=== PATIENT | female | born 1970 | race Caucasian/White ===

== ENCOUNTER → 2017-02-25 | Outpatient (CLI) | payer BC | END | disposition home or self-care (01) | LOC: RADMRIMAIN 18:10 | PROVIDERS: ATTEND Family Medicine | DX: Z53.9 Procedure and treatment not carried out, unspecified reason (principal) ==

== ENCOUNTER → 2017-04-29 | Outpatient (CLI) | payer BC ==
--- NOTE | 2017-04-29 21:05 | US ---
EXAMINATION TYPE: US thyroid st tissue head/neck DATE OF EXAM: 04/29/2017 COMPARISON: NONE CLINICAL HISTORY: E04.1 Thyroid nodule. Patient stated feels like food is getting caught in esophagus ; had open MRI in [place] 1.5 months earlier which showed left thyroid nodule; has had 60 lbs weight gain in 2 months. GLAND SIZE: Right Lobe: 5.3 x 1.7 x 1.8 cm Overall Parenchyma: homogenous Left Lobe: 5.1 x 2.0 x 2.1 cm Overall Parenchyma: homogeneous Isthmus Thickness: 0.3 cm NODULES RIGHT: # of nodules measured on right: 2 1. 0.4 X 0.4 x 0.2 cm hypoechoic mixed nodule at the lower medial pole with well-defined margins. This nodule is wider than tall and shows no intranodular vascularity. Prior size: no previous US 2. 0.3 X 0.2 x 0.2 cm hypoechoic mixed nodule at the mid lateral pole with well-defined margins. Th is nodule is wide as is tall and shows no intranodular vascularity. LEFT: # of nodules measured on left: 2 1. 0.4 X 0.3 x 0.4 cm hypoechoic mixed nodule at the upper pole with well-defined margins. This no dule is taller than wide and shows no intranodular vascularity. 2. 2.2 X 1.8 x 1.7 cm hypoechoic solid nodule at the mid pole with well-defined margins. This nodul e is taller than wide and shows intranodular vascularity. ISTHMUS: # of nodules measured in the isthmus: 0 Bilateral neck scanned, no evidence of lymphadenopathy. Thyroid gland is overall upper limits of normal in size and homogeneous in echotexture. There are few tiny nodules scattered throughout both thyroid lobes. There is a dominant 2.2 cm well-defined hetero geneous slightly hypoechoic solid nodule noted. IMPRESSION: Thyroid gland is upper limits of normal in size with a dominant 2.2 cm heterogeneous hypoechoic solid nodule confirmed. Imaging guided fine-needle aspiration of this dominant nodule can be performed to rule out malignancy if desired.
== END | disposition home or self-care (01) ==
LOC: RADUSWWP 16:38
PROVIDERS: ATTEND Internal Medicine Endocrinology, Diabetes & Metabolism
DX: E04.2 Nontoxic multinodular goiter (principal)
CPT/HCPCS: 76536

== ENCOUNTER 2017-05-19 12:07 | Day surgery (SDC) | payer BC ==
[2017-05-19 13:22] VITALS: RESP 16; TEMP 97
[2017-05-19 14:21] VITALS: BP 112/56; PULSE 76
--- NOTE | 2017-05-19 16:36 | US ---
ULTRASOUND GUIDED FNA THYROID BIOPSY: CLINICAL HISTORY: Left thyroid nodule FINDINGS: The procedure was explained to the patient. The risks, complications, benefits and alternatives were discussed and any questions were answered. Informed consent was obtained. Patient was placed supin e on the ultrasound table and prepped and draped in the usual sterile fashion. Utilizing a 25 gauge needle, five passes were made into the requested left thyroid nodule. Patient was stable throughout the procedure. Pathology is pending. All elements of maximal barrier technique were utilized. IMPRESSION: 1. Successful ultrasound guided FNA thyroid biopsy.
== END 2017-05-19 14:00 | disposition home or self-care (01) ==
LOC: RADPROMAIN 12:07
PROVIDERS: ATTEND Internal Medicine Endocrinology, Diabetes & Metabolism
DX: E04.1 Nontoxic single thyroid nodule (principal)
CPT/HCPCS: 10022; 76942; 88173; 88305

== ENCOUNTER → 2017-07-05 | Outpatient (CLI) | payer BC ==
--- NOTE | 2017-07-05 16:17 | CT ---
EXAMINATION TYPE: CT soft tissue neck w con DATE OF EXAM: 07/05/2017 HISTORY: Patient complains of dysphagia. Multiple thyroid nodules. presurgical. COMPARISON: Thyroid ultrasound dated 04/29/2017. CT DLP: 390.7 mGycm. Automated Exposure Control for Dose Reduction was Utilized. TECHNIQUE: CT scan of the neck is performed with IV Contrast, patient injected with 100 mL of Omnipa que 300, axial images are obtained, coronal and sagittal reformatted images are reviewed. FINDINGS: Airway: The oropharynx, nasopharynx, and subglottic pharynx are patent. Parotid/submandibular glands: Parotids and submandibular glands are symmetric without inflammatory ch enid. Carotid/Vascular Structures: No hemodynamically significant stenosis within either carotid system or vertebral artery. Osseous Structures: Osseous structures are intact and visualized paranasal sinuses are well aerated a s are the mastoid air cells and middle ear cavities. Other: The known left thyroid nodules are better delineated on ultrasound as they were noted to be is oechoic and are also isoattenuated to the background thyroid parenchyma other than a curvilinear area of 9 mm hypoattenuation within the enlarged left thyroid gland. Multiple nonenlarged anterior and po sterior cervical chain lymph nodes are seen. No adenopathy directly surrounding the thyroid gland is appreciated. No supraclavicular adenopathy is seen. No substernal extension of the thyroid gland is s een. IMPRESSION: The known complex left thyroid nodule is better assessed with ultrasound as it is isodens e on the current examination other than a curvilinear area of hypoattenuation measuring only 9 mm. No pathologically enlarged lymph nodes are seen of the neck. No substernal extension of the thyroid gla nd is noted.
== END | disposition home or self-care (01) ==
LOC: RADCTMAIN 15:34
PROVIDERS: ATTEND Surgery
DX: E04.2 Nontoxic multinodular goiter (principal)
CPT/HCPCS: 70491; Q9967

== ENCOUNTER 2017-08-03 07:55 | Observation (INO) | payer BC ==
[2017-07-30 10:46] VITALS: BMI 36.9
[~2017-08-03 07:55] MED LIST: HEPARIN SODIUM,PORCINE 5,000 UNIT/ML 1 ML VIAL SQ ONE; LACTATED RINGERS 1,000 ML IV ONE; ONDANSETRON 4 MG/2 ML VIAL IVP PRN; Pre Op ABX Message 1 EACH MISC MISCELLANE ONE; fentaNYL (PF) 50 MCG/ML 2 ML AMP IV PRN
[2017-08-03] MEDS ORDERED: LACTATED RINGERS 1,000 ML IV ONE ×3 (08:17→12:45)
[2017-08-03] MEDS ORDERED: LIDOCAINE 1% 20 ML VIAL (10MG/ML) FOR IV START INTRADERMA ONE (08:17)
[2017-08-03] MEDS ORDERED: SCOPOLAMINE 1.5MG/72HR PATCH TRANSDERM ONE (08:22)
[2017-08-03] MEDS ORDERED: DEXAMETHASONE SOD PHOS (MDV) 100 MG/10 ML VIAL IVP ONE (08:26)
[2017-08-03] MEDS ORDERED: HEPARIN SODIUM,PORCINE 5,000 UNIT/ML 1 ML VIAL SQ ONE (09:06)
[2017-08-03] MEDS ORDERED: SUCCINYLCHOLINE CHLORIDE 100 MG/5 ML SYR IV ONE (09:06)
[2017-08-03] MEDS ORDERED: LIDOCAINE 1% INJ 10MG/ML (20 ML MDV) ONE (09:06)
[2017-08-03] MEDS ORDERED: HYDROmorphone (PF) 1 MG/ML ONE (09:06)
[2017-08-03] MEDS ORDERED: fentaNYL (PF) 50 MCG/ML 2 ML AMP ONE (09:06)
[2017-08-03] MEDS ORDERED: PHENYLEPHRINE-0.9% NACL SYG 1 MG/10 ML SYRINGE ONE (09:06)
[2017-08-03] MEDS ORDERED: MIDAZOLAM 2 MG/2 ML VIAL ONE (09:06)
[2017-08-03] MEDS ORDERED: PROPOFOL 10 MG/ML 20 ML VIAL IV ONE (09:06)
[2017-08-03] MEDS ORDERED: SODIUM CHLORIDE 0.9% 50 ML with CLINDAMYCIN 600 MG IV ONE ×2 (09:46)
[2017-08-03] MEDS ORDERED: THROMBIN (BOVINE) 5,000 UNIT VIAL TOPICAL ONE (12:26)
[2017-08-03] MEDS ORDERED: GELATIN SPONGE,ABSORB (LARGE) 1 EACH SPONGE TOPICAL ONE (12:26)
[2017-08-03] MEDS ORDERED: HYDROcodone/APAP 5-325MG 1 EACH TAB PO PRN (12:58)
[2017-08-03] MEDS ORDERED: ONDANSETRON 4 MG/2 ML VIAL IVP PRN (12:58)
[2017-08-03] MEDS ORDERED: NALOXONE 0.4 MG/ML 1 ML VIAL IV PRN (12:58)
--- NOTE | 2017-08-03 12:58 | P.OP ---
Date of Procedure: 08/03/17 Preoperative Diagnosis: Nodule in the left lobe of the thyroid with compressive symptoms Description of Procedure: The patient is a 46-year-old white female was noted to have a nodule in the left lobe of the thyroid. FNA was done which revealed atypical cells and cytopathology studies were indeterminant. Additionally the patient complains of compressive symptoms. Patient was taken to the operating room and following induction of anesthesia the neck was prepped and draped in a sterile fashion. Prior to this a [facility] nerve stimulator was placed. The patient was placed in beachchair position. The neck was prepped and draped in a sterile fashion A collar incision was made. This was carried through skin and subcutaneous tissue and platysma. Superior and inferior skin flaps were developed. Strap muscles were in the midline. The left lobe of the thyroid was approached initially. The lobe was rotated medially. Superior thyroid vessels were identified and divided. The inferior thyroid vessels were identified and divided as well. The middle thyroid vein was identified and ligated and divided. The lobe was rotated medially being careful to identify and preserve the recurrent layrmgeal nearve, and spuerior and inferior parathyroid glands. The recurrent laryngeal nerve was identified and preserved as well. This was documented visually as well as with using the nerve stimulator. Following this the right side was approached. The superior and inferior thyroid vessels were identified these were ligated and divided. Likewise the middle thyroid vein was identified and ligated and divided. The recurrent laryngeal nerve was identified. The parathyroid superiorly and inferiorly identified and preserved. No adenopathy of concern was palpated in either side of the neck. After being assured that hemostasis was attained Gelfoam and thrombin was placed at the area of the ligament of Mcdonald. The neck was irrigated and no evidence of bleeding was identified. A Oscar drain was placed. Strap muscles were closed in the midline. This was followed by closure of the platysma with 3-0 Vicryl suture. The skin was closed using 4-0 Monocryl. The drain was secured using a nylon suture. The patient tolerated the procedure in stable condition. All instrument and sponge counts were correct at the end of the case.
[2017-08-03] MEDS ORDERED: HYDROmorphone 1 MG/ML 1 ML SYRINGE IVP ONE ×3 (13:31→14:20)
[2017-08-03] MEDS ORDERED: METOPROLOL TARTRATE 5 MG/5 ML VIAL IVP ONE ×2 (13:55→14:04)
[2017-08-03] MEDS: DEXTROSE 5%-0.45% NACL 1,000 ML IV SCH (16:05)
[2017-08-03] MEDS: HYDROmorphone 1 MG/ML 1 ML SYRINGE IV PRN ×2 (17:41→20:04)
[2017-08-03] MEDS: CALCIUM CARB-VIT D 500MG-200UN 1 EACH TAB PO SCH (18:28)
[2017-08-03] MEDS: HEPARIN SODIUM,PORCINE 5,000 UNIT/ML 1 ML VIAL SQ SCH (20:04)
[2017-08-03] MEDS: BENZOCAINE/MENTHOL LOZENG 1 EACH LOZENGE MUCOUS MEM PRN (20:04)
--- NOTE | 2017-08-03 20:34 | CONS ---
CONSULTATION DATE OF CONSULTATION: 08/03/17 REASON FOR CONSULTATION: Medical management requested by Dr. Schroeder. CONSULTATION: This is a pleasant 46-year-old patient of Dr. Willams. The patient is found to have a left thyroid nodule within compression symptoms and some atypical cells was found. Patient did undergo total thyroidectomy today. The patient has dressing over the operative site. The patient is somewhat tired and lethargic post procedure, but able to give some history. Patient has pain at the operative site. The patient also got caught problem in cervical spine from C4-C7 and due for surgery in the near future by Dr. Perez. The patient is followed by ceo and president, Dr. Luisa Kirkpatrick and she has tried some clear liquids right now. Does feel weak and tired. REVIEW OF SYSTEMS: Constitutional tired. HEENT none. Respiratory none. Cardiovascular none. Gastrointestinal none. Genitourinary none. Musculoskeletal none. Dermatologic, hematologic and lymphatic none. Psychiatry none. Neurological none. Musculoskeletal pain in the neck. PAST MEDICAL HISTORY: Thyroid nodule, pituitary tumor with gamma knife in 1995, stroke related to control, no physical residual defect, tiredness. PAST SURGICAL HISTORY: Orthopedic surgery, tubal ligation, uterine ablation, pituitary tumor removed, multiple surgeries on the wrist, left arm plate and pins, laparoscopic surgery for ruptured ovarian tube. SOCIAL HISTORY: Does not smoke. Alcohol rarely. Patient works with [employer] Services at [employer]. . FAMILY HISTORY: Thyroid disorder, ovarian cancer. HOME MEDICATIONS: Multivitamin. ALLERGIES: TO AMOXICILLIN, TYLENOL 3. EXAMINATION: Afebrile, pulse 81, respiratory 20, blood pressure 142/79, pulse ox 95% on room air. General appearance well built, BMI 36.9, lying in bed, tired appearing but arousable. Eyes pupils equal, conjunctivae normal. HEENT: Oral cavity normal. Neck dressing in place. JVD unable to assess. Tender. Respiratory effort lungs fair entry. Cardiovascular first and second sounds normal. No edema. ABDOMEN: Soft, nontender. Liver and spleen not palpable. Lymphatics: No lymph nodes palpable in the neck and axillae. Psychiatry: Patient lethargic but able to answer simple questions. Neurological pupils equal, no facial asymmetry. Moving all 4 limbs. INVESTIGATIONS: Calcium 9.4 and 8.9. ASSESSMENT: 1. Total thyroidectomy for left thyroid nodule with atypical cells with some compression symptoms. 2. Possibly C4, C7 osteo spondylosis due for surgery down the road. 3. Obesity BMI 36.9. PLAN: Care was discussed with the patient. Diet will be advanced as per Dr. Brandy Schroeder. The patient's and daughter at the bedside with no further questions. Pain control is in place. Dr. Luisa Kirkpatrick is following patient's calcium. The patient should see a dietitian as an outpatient for weight loss measures. Thank you Dr. Schroeder. Copy to Dr. Willams. KEMIL / GABI: [id number] /
[2017-08-04] MEDS ORDERED: BENZOCAINE/MENTHOL LOZENG 1 EACH LOZENGE MUCOUS MEM ONE (03:30)
[2017-08-04] MEDS: HYDROmorphone 1 MG/ML 1 ML SYRINGE IV PRN (06:19)
[2017-08-04] MEDS ORDERED: PANTOPRAZOLE 40 MG TABLET PO SCH (07:30)
[2017-08-04 08:01] LABS: Magnesium 1.6 mg/dL (1.6-2.3); Phosphorus 3.8 mg/dL (2.5-4.5)
[2017-08-04 08:44] VITALS: BP 108/69; PULSE 68; RESP 20; TEMP 97.6
[2017-08-04] MEDS: BENZOCAINE/MENTHOL LOZENG 1 EACH LOZENGE MUCOUS MEM PRN (08:52)
[2017-08-04] MEDS: HEPARIN SODIUM,PORCINE 5,000 UNIT/ML 1 ML VIAL SQ SCH (08:53)
[2017-08-04] MEDS: CALCIUM CARB-VIT D 500MG-200UN 1 EACH TAB PO SCH (08:53)
[2017-08-04] MEDS: DEXTROSE 5%-0.45% NACL 1,000 ML IV SCH ×2 (08:54→08:59)
--- NOTE | 2017-08-04 09:28 | P.DS ---
Providers Date of admission: 08/03/17 21:05 Expected date of discharge: 08/04/17 Attending physician: Claudia Schroeder Consults: 08/03/17 13:02 Consult Physician Routine Consulting Provider: Luisa Kirkpatrick Consult Reason/Comments: total thyroidectomy Do you want consulting provider notified?: Yes Consult Physician Routine Consulting Provider: Tonny North Consult Reason/Comments: medical managment Do you want consulting provider notified?: Yes Primary care physician: Amaury [facility] Course: 46-year-old female who was noted to have a nodule in the left lobe of the thyroid. FNA was done it showed atypical cells and cytopathology studies were indeterminant. Additionally the patient complains of compressive symptoms. Patient elected to undergo on the 03 of August a left lobe thyroidectomy. Postop calcium 9.5. Magnesium 1.6 replacement was given. The following morning the [place] drain was removed from surgical site there were no acute findings voice was not hoarse no numbness to the face patient was felt to be appropriate to be discharged Impression discharge diagnosis Nodule left lobe of the thyroid with compressive symptoms FNA was done which revealed atypical cells and cytopathology studies were indeterminant. Postop August 03 left lobe thyroidectomy Hypo-magnesium corrected The above impression and plan of care have been discussed and directed by signing physician. Heidy Yuan nurse practitioner acting as scribe for signing physician. Plan - Discharge Summary Discharge Rx Participant: Yes New Discharge Prescriptions: New Ibuprofen [Motrin] 0 mg PO Q8H PRN #15 tab PRN Reason: Mild Breakthrough Pain Calcium Carb-Vit D 500Mg-200Un [Oscal 500+D] 2 each PO BID-W/MEALS #120 tab Continue Multivitamins, Thera [Multivitamin (formulary)] 1 tab PO DAILY Discharge Medication List Multivitamins, Thera [Multivitamin (formulary)] 1 tab PO DAILY 07/30/17 [History ] Calcium Carb-Vit D 500Mg-200Un [Oscal 500+D] 2 each PO BID-W/MEALS #120 tab [Rx] Ibuprofen [Motrin] 0 mg PO Q8H PRN #15 tab 08/04/17 [Rx] Follow up Appointment(s)/Referral(s): Luisa Kirkpatrick MD [STAFF PHYSICIAN] - 1 Week Claudia Schroeder MD [STAFF PHYSICIAN] - 1 Week Patient Instructions/Handouts: *Surgery [facility] - Scopalamine Patch Instructions Activity/Diet/Wound Care/Special Instructions: No lifting over 4 pounds until seen in follow-up visit Keep surgical dressing dry Discharge Disposition: HOME SELF-CARE
[2017-08-04] MEDS ORDERED: IBUPROFEN 800 MG TAB PO PRN (09:50)
[2017-08-04] MEDS ORDERED: SODIUM CHLORIDE 0.9% 500 ML IV ONE (09:51)
[2017-08-04] MEDS: MAGNESIUM OXIDE 400 MG TAB PO STA ×2 (10:08→11:02)
[2017-08-04] MEDS: MAGNESIUM SULFATE-D5W PMX 1 GM in DEXTROSE/WATER 1 100ML.BAG IVPB SCH ×2 (11:02→12:26)
--- NOTE | 2017-08-04 14:17 | P.PN ---
Progress Note - Text Progress Note Date: 08/04/17 DATE OF SERVICE: 08/04/2017 PRESENTING COMPLAINT: Status post total thyroidectomy HISTORY OF PRESENT ILLNESS: 46-year-old female found to have a left thyroid nodule within compression symptoms and some atypical cells were found. Status post total thyroidectomy. INTERVAL HISTORY: 08/04/2017: Patient seen in follow-up today, standing up attempting to get dressed, surgical team has cleared the patient for discharge. States she has some difficulty swallowing but is able to swallow. No shortness of breath, or difficulty breathing, states she feels nauseated, received IV push Dilaudid short time ago. Anterior neck dressing clean dry and intact no drainage noted. REVIEW OF SYSTEMS: Done for constitutional ,cardiovascular, GI, pulmonary with relevant findings as above. CURRENT MEDICATIONS Cepacol lozenges, Os-Yonny plus D, Motrin 800 mg by mouth 3 times a day when necessary, Protonix 40 mg by mouth before meals breakfast daily. PHYSICAL EXAM VITAL SIGNS: Temperature 97.6, pulse 68, respirations 20 blood pressure 108/69, oxygen saturation 95% on room air. GENERAL APPEARANCE: Standing at the bedside getting dressed not in distress. EYES: Pupils equal. Conjunctiva normal. NECK: Anterior midline neck dressing in place, no drainage noted mild swelling at surgical site. JVD not raised. Mass not palpable. RESPIRATORY: Respiratory effort normal. Lungs clear to auscultation. CARDIOVASCULAR: First and second sounds normal. No edema. ABDOMEN: Soft. Liver and spleen not palpable. No tenderness. No mass palpable. PSYCHIATRY: Alert and oriented x3. Mood and affect normal. INVESTIGATIONS: Calcium 9.5, phosphorus 3.8, magnesium 1.6. ASSESSMENT: -Total thyroidectomy for left thyroid nodule with atypical cells with some compression symptoms. -Possibly C4, C7 osteosis spondylosis due for surgery at a later date. -Obesity body mass index 36.9. PLAN: Surgery has cleared the patient for discharge, however patient does feel some nausea, likely due to IV pain medications. Patient to be discharged once nausea dissipates. Dr. Kirkpatrick continues to follow patient's calcium. Patient should see a dietitian as an outpatient for weight loss measures. HAND [employer]ATWORK FINISHER statement: Patient was seen and examined by nurse practitioner Margot Wyatt and all elements of the case discussed with attending Dr. North
--- NOTE | 2017-08-04 23:15 | PN ---
PROGRESS NOTE DATE OF SERVICE: 08/04/2017 ATTENDING NOTE: Patient was seen and examined by me. I discussed with my nurse practitioner, Ms. Wyatt. The patient is feeling a bit better, had some nausea earlier this morning. It is felt to be from Dilaudid. EXAM: LUNGS: Clear. CARDIOVASCULAR: First and second sounds normal. Otherwise, patient is definitely far more perky. Calcium was noted. Magnesium was replaced, status post total thyroidectomy. Magnesium on the low side. The patient is due for a cervical spine surgery by Dr. Perez in a few days. Care was discussed with the patient. Thank you, Dr. Brandy Schroeder. MMBALAL / IJN: [id number] /
== END 2017-08-04 15:05 | disposition home or self-care (01) ==
LOC: OR 07:55 → 6PED 12:50 → OR 21:05
PROVIDERS: ADMIT Surgery; ATTEND Surgery
DX: E04.1 Nontoxic single thyroid nodule (principal); E83.42 Hypomagnesemia; E66.9 Obesity, unspecified; E55.9 Vitamin D deficiency, unspecified; F32.9 Major depressive disorder, single episode, unspecified; M50.30 Other cervical disc degeneration, unspecified cervical region; Z86.73 Personal history of transient ischemic attack (TIA), and cerebral infarction without residual deficits; Z83.49 Family history of other endocrine, nutritional and metabolic diseases; Z88.5 Allergy status to narcotic agent; Z88.0 Allergy status to penicillin; Z68.36 Body mass index [BMI] 36.0-36.9, adult; Z87.891 Personal history of nicotine dependence
CPT/HCPCS: 81025; 82310 ×2; 83735; 84100; 88307; 60240; G0378 ×2; J2250; J1644 ×2; J2405; J2001; J3010; J1170 ×2; J3475; J1100; J2370; J0330; J2704

== ENCOUNTER → 2019-02-14 | Outpatient (CLI) | payer BC ==
--- NOTE | 2019-02-14 13:54 | CT ---
EXAMINATION TYPE: CT sinus wo con DATE OF EXAM: 02/14/2019 COMPARISON: NONE HISTORY: Acute sinusitis unspecified per order. Nose bleeding with headaches, facial pain, dizziness and vision changes for [address] DLP: 544.7 mGycm. Automated Exposure Control for Dose Reduction was Utilized. TECHNIQUE: CT scan of the sinuses is performed without contrast, axial images are obtained, coronal r eformatted images are also reviewed. FINDINGS: Mild mucosal thickening involving inferior aspect left maxillary sinus is present. Remainde r paranasal sinuses are clear without suspicious opacification or air-fluid levels. The ostiomeatal complex is patent bilaterally on the coronal images. Visualized portion of mastoid air cells show no abnormal opacification. The globes are intact bilate rally. Visualized portion of brain parenchyma is unremarkable. IMPRESSION: Mild chronic left maxillary sinus disease. No acute sinusitis.
== END | disposition home or self-care (01) ==
LOC: RADCTMAIN 13:27
PROVIDERS: ATTEND Family Medicine
DX: J01.90 Acute sinusitis, unspecified (principal); J32.0 Chronic maxillary sinusitis
CPT/HCPCS: 70486

== ENCOUNTER 2019-06-05 17:45 | Emergency (ER) | payer OTHER, BC ==
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
[2019-06-05] MEDS ORDERED: KETOROLAC 60 MG/2 ML VIAL IM STA (20:09)
[2019-06-05 20:30] VITALS: BP 138/90; PULSE 77; RESP 18; TEMP 99.3
[2019-06-05] MEDS ORDERED: DIAZEPAM 5 MG/ML 2 ML INJ IM ONE (20:34)
== END 2019-06-05 21:00 | disposition home or self-care (01) ==
LOC: EC 17:45
DX: S16.1XXA Strain of muscle, fascia and tendon at neck level, initial encounter (principal); R51 Headache; E07.9 Disorder of thyroid, unspecified; Z87.891 Personal history of nicotine dependence; Z86.73 Personal history of transient ischemic attack (TIA), and cerebral infarction without residual deficits; Z79.899 Other long term (current) drug therapy; Z88.0 Allergy status to penicillin; Z88.6 Allergy status to analgesic agent; Z88.5 Allergy status to narcotic agent; V89.2XXA Person injured in unspecified motor-vehicle accident, traffic, initial encounter; Y92.410 Unspecified street and highway as the place of occurrence of the external cause
CPT/HCPCS: 72125; 70450; 99284; 96372 ×2; J3360; J1885

== ENCOUNTER 2020-07-09 17:01 | Emergency (ER) | payer BC, OTHER ==
[2020-07-09 17:16] VITALS: RESP 16
[2020-07-09] MEDS ORDERED: KETOROLAC 15 MG/ML 1 ML VIAL IVP STA (17:20)
--- NOTE | 2020-07-09 17:21 | ED ---
General Adult HPI - General Chief complaint: Extremity Injury, Lower Stated complaint: fall/foot pain Time Seen by Provider: 07/09/20 17:03 Source: patient, EMS, RN notes reviewed Mode of arrival: EMS Limitations: physical limitation - History of Present Illness Initial comments: 49-year-old female presents to the emergency department for a chief complaint of foot and ankle pain. Patient was dusting when she fell off of a 2 foot high stool darkly onto her right heel. States her heel and ankle are painful. Patient states she is not able to bear weight at this time. Patient did not hit her head. She does not take blood thinners.Patient has no other complaints at this time including shortness of breath, chest pain, abdominal pain, nausea or vomiting, headache, or visual changes. - Related Data Home Medications Medication Instructions Recorded Confirmed Thyroid,Pork [[place] Thyroid] 120 mg PO DAILY 06/05/19 06/05/19 Vortioxetine Hydrobromide 5 mg PO DAILY@1730 06/05/19 06/05/19 [Trintellix] Previous Rx's Medication Instructions Recorded Cyclobenzaprine [Flexeril] 10 mg PO TID #20 tab 06/05/19 Ibuprofen [Motrin] 600 mg PO Q6HR PRN #20 tab 06/05/19 Allergies Allergy/AdvReac Type Severity Reaction Status Date / Time amoxicillin Allergy Rash/Hives Verified 06/05/19 18:07 acetaminophen AdvReac "knocks me Verified 06/05/19 18:07 [From Tylenol-Codeine #3] out" codeine AdvReac "knocks me Verified 06/05/19 18:07 [From Tylenol-Codeine #3] out" Review of Systems ROS Statement: Those systems with pertinent positive or pertinent negative responses have been documented in the HPI. ROS Other: All systems not noted in ROS Statement are negative. 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 Recent weight gain, tiredness, difficulty swallowing currently seeing tank crewmember. History of Any Multi-Drug Resistant Organisms: None Reported Past Surgical History: Orthopedic Surgery Additional Past Surgical History / Comment(s): Pituitary tumor removed (gammaknife 1995), multi surgeries on bilateral wrist, left arm plate and pins, Laproscopic sx for ruptured ovarian tube. thyroidectomy Past Anesthesia/Blood Transfusion Reactions: No Reported Reaction Additional Past Anesthesia/Blood Transfusion Reaction / Comment(s): states very hard to wake up Past Psychological History: No Psychological Hx Reported Past Alcohol Use History: Occasional Past Drug Use History: None Reported - Past Family History Sister(s) Family Medical History: Cancer, Thyroid Disorder Additional Family Medical History / Comment(s): ovarian Mother Family Medical History: Cancer, Deep Vein Thrombosis (DVT) Additional Family Medical History / Comment(s): small cell carcinoma, General Exam Limitations: physical limitation General appearance: alert, in no apparent distress Head exam: Present: atraumatic, normocephalic, normal inspection Eye exam: Present: normal appearance, PERRL, EOMI. Absent: scleral icterus, conjunctival injection, periorbital swelling ENT exam: Present: normal exam, mucous membranes moist Neck exam: Present: normal inspection, full ROM. Absent: tenderness, meningismus, lymphadenopathy Respiratory exam: Present: normal lung sounds bilaterally. Absent: respiratory distress, wheezes, rales, rhonchi, stridor Cardiovascular Exam: Present: regular rate, normal rhythm, normal heart sounds. Absent: systolic murmur, diastolic murmur, rubs, gallop, clicks Extremities exam: Present: tenderness (Tenderness noted to the heel, medial malleolus, and navicular area. No tenderness to the plantar aspect of the foot distal to the heel. No bruising to the heel.), normal capillary refill (Capillary refill less than 2 seconds, DP pulse 2+ in the right lower extremity.), joint swelling (Mild edema noted along the medial malleolus of the right ankle.), other (Sensation intact right lower extremity. Compartments are soft). Absent: full ROM (Patient has limited range of motion of the right ankle secondary to pain but plantar and dorsi flexion mechanisms are intact. Patient able to move all toes.), pedal edema, calf tenderness Course Vital Signs 07/09/20 17:10 Temperature 98.6 F Pulse Rate 73 Respiratory 16 Rate Blood Pressure 112/75 O2 Sat by Pulse 99 Oximetry Procedures - Orthopedic Splinting/Casting Injury #1 Side: right Lower Extremity Injury Location: short leg Lower Extremity Immobilizer: Vicente dressing Other Orthopedic Equipment: crutches Additional Comments: Neurovascular status intact Medical Decision Making - Medical Decision Making X-ray of the right ankle foot and calcaneus shows a mildly displaced tongue-type calcaneal fracture with associated soft tissue edema. Otherwise no acute fracture of the right foot or ankle. Bulky Vicente splint was applied. Neurovascular status intact after application. Patient has crutches at home and she will remain nonweightbearing. I did inform Dr. Montalvo about this who agrees with outpatient follow-up with crutches and a splint. She will call his office tomorrow. She will return here for any worsening symptoms. Disposition Clinical Impression: Calcaneal fracture Disposition: HOME SELF-CARE Condition: Good Instructions (If sedation given, give patient instructions): Calcaneal Fracture (ED) Additional Instructions: Please keep splint dry. Remain nonweightbearing on the foot, use crutches. Rest ice and elevate the foot. Take Tylenol 3 for pain but do not drive or operate machinery while taking this. Follow up with orthopedics by calling tomorrow for the earliest appointment. Return to the emergency room for any worsening symptoms. Is patient prescribed a controlled substance at d/c from ED?: No Referrals: Amauyr Willams MD [Primary Care Provider] - 1-2 days Gerardo Montalvo MD [STAFF PHYSICIAN] - 1-2 days Time of Disposition: 18:52
--- NOTE | 2020-07-09 18:01 | XR ---
Result: Clinical History: Pain status post fall. Comparison: None available. Technique: 3 views of the right ankle. 2 views of the right calcaneus. 3 views of the right foot. Findings: There is a mildly displaced, tongue type calcaneal fracture. There is associated soft tissue edema. O therwise no acute fracture of the right ankle or foot. The ankle mortise is congruent. The joint spac es are grossly preserved. Impression: Right calcaneal fracture. Otherwise no acute fracture of the right ankle or foot.
[2020-07-09] MEDS ORDERED: MORPHINE SULFATE 4 MG/ML SYRINGE IVP STA (18:31)
[2020-07-09] MEDS ORDERED: ACET/COD 300 MG/30 MG STARTER PACK 6 TAB BTL PO STA (18:31)
[2020-07-09] MEDS ORDERED: ONDANSETRON 4 MG/2 ML VIAL IVP STA (18:31)
[2020-07-09 19:22] VITALS: BP 115/74; PULSE 72; TEMP 98.9
== END 2020-07-09 19:14 | disposition home or self-care (01) ==
LOC: EC 17:01
DX: S92.001A Unspecified fracture of right calcaneus, initial encounter for closed fracture (principal); E07.9 Disorder of thyroid, unspecified; Z79.890 Hormone replacement therapy; Z88.0 Allergy status to penicillin; Z88.5 Allergy status to narcotic agent; Z88.6 Allergy status to analgesic agent; Z86.73 Personal history of transient ischemic attack (TIA), and cerebral infarction without residual deficits; W17.89XA Other fall from one level to another, initial encounter
CPT/HCPCS: 73610; 73630; 73650; 99283; 29515; 96374; 96375 ×2; J2270; J2405; J1885